=== PATIENT | male | born 1985 | race Caucasian/White ===

== ENCOUNTER 2022-11-05 07:05 | Day surgery (SDC) | payer OTHER ==
[2022-11-05] VITALS (240 sets, daily range): BP systolic 91–197; BP diastolic 49–161
[~2022-11-05] VITALS: Ht 190.5 cm; Wt 90.0 kg
[2022-11-05 08:46] LABS: ALBUMIN 4.3 g/dL (3.2-5.0); ALKALINE PHOSPHATASE 52 u/l (38-126); ANION GAP 12 (6-22 (CALC)); BILIRUBIN, TOTAL 0.3 mg/dL (0.2-1.3); BUN 23 mg/dL (9-20); BUN/CREATININE RATIO 24 (12-20 (CALC)); CARBON DIOXIDE 28 mmol/l (22-30); CHLORIDE 101 mmol/l (95-108); CREATININE 0.9 mg/dL (0.7-1.3); GFR FOR AFR.AMER. > 60 ML/MIN (>=60 (CALC)); GFR OTHER RACES > 60 ML/MIN (>=60 (CALC)); POTASSIUM 4.1 mmol/l (3.5-5.1); SGOT/AST 30 u/l (17-59); SODIUM 137 mmol/l (137-146); TOTAL PROTEIN 7.1 g/dL (6.3-8.2)
[2022-11-05 08:53] LABS: BASO% 0.5 % (0-3); EOS% 7.6 % (0-8); HEMATOCRIT 42.7 % (39.0-50.0); HEMOGLOBIN 14.4 g/dl (14.0-18.0); IMMATURE GRANULOCYTES 0.2 % (0.0-5.0); LYMPH% 34.7 % (15-41); MEAN CORPUSCULAR HGB CONC 33.7 g/dL CAL (32.0-36.0); NEUT# 3.93 thou/uL (1.82-7.42); RED BLOOD COUNT 4.64 mill/uL (4.70-6.10); RED CELL DISTRI WIDTH 13.1 % (11.5-15.5)
[2022-11-05] MEDS ORDERED: NALTREXONE50 MG PO (17:53)
[2022-11-05] MEDS ORDERED: KLONOPIN2 MG PO ×2 (17:54)
[2022-11-05] MEDS ORDERED: CLONIDINE0.1 MG PO (17:57)
[2022-11-06 03:58] LABS: BASO% 0.1 % (0-3); HEMATOCRIT 42.1 % (39.0-50.0); HEMOGLOBIN 14.8 g/dl (14.0-18.0); IMMATURE GRANULOCYTES 0.3 % (0.0-5.0); MEAN CORPUSCULAR HGB 30.4 pG CALC (26.0-32.0); MEAN CORPUSCULAR HGB CONC 35.2 g/dL CAL (32.0-36.0); NEUT# 14.15 thou/uL (1.82-7.42); NEUT% 92.6 % (42-76); RED BLOOD COUNT 4.87 mill/uL (4.70-6.10); RED CELL DISTRI WIDTH 12.4 % (11.5-15.5)
[2022-11-06 04:06] LABS: MEAN CELL VOLUME 86.4 fL CALC (80.0-100.0)
[2022-11-06 04:09] VITALS: BP 148/67
[2022-11-06 04:15] LABS: ALBUMIN 4.7 g/dL (3.2-5.0); ALKALINE PHOSPHATASE 47 u/l (38-126); BUN 14 mg/dL (9-20); BUN/CREATININE RATIO 17 (12-20 (CALC)); CHLORIDE 103 mmol/l (95-108); CREATININE 0.8 mg/dL (0.7-1.3); GFR FOR AFR.AMER. > 60 ML/MIN (>=60 (CALC)); GFR OTHER RACES > 60 ML/MIN (>=60 (CALC)); MAGNESIUM 2.2 mg/dL (1.6-2.3); SODIUM 140 mmol/l (137-146); TOTAL PROTEIN 8.1 g/dL (6.3-8.2)
[2022-11-06 04:16] LABS: ANION GAP 20 (6-22 (CALC)); BILIRUBIN, TOTAL 0.8 mg/dL (0.2-1.3); CARBON DIOXIDE 21 mmol/l (22-30); SGOT/AST 58 u/l (17-59)
[2022-11-06 04:23] VITALS: BP 148/67
[2022-11-06 07:39] VITALS: BP 148/67
== END 2022-11-06 16:10 | disposition home or self-care (01) | DRG 897 ==
LOC: MS2 07:05 → ANR 07:05 → MS2 11-06 16:10 → ANR 11-06 16:10
PROVIDERS: ATTEND Anesthesiology
DX: F11.20 Opioid dependence, uncomplicated (principal)
CPT/HCPCS: J2060; J2354; J3475